=== PATIENT | female | born 1990 | race Caucasian/White ===

== ENCOUNTER 2019-05-05 09:45 | Outpatient (CLI) | payer MEDICAID, SELFPAY ==
[2019-05-05] VITALS (10 sets, daily range): BP systolic 0–120; BP diastolic 0–73; PULSE 72–97; RESP 18; TEMP 36.9; BMI 29.9
== END 2019-05-05 13:20 | disposition home or self-care (01) ==
PROVIDERS: PCP Nurse Practitioner Family; Visit Provider Family Medicine
DX: O26.899 Other specified pregnancy related conditions, unspecified trimester (principal); Z3A.00 Weeks of gestation of pregnancy not specified; R10.9 Unspecified abdominal pain
CPT/HCPCS: 99211

== ENCOUNTER 2019-05-06 03:56 | Inpatient (IN) | payer MEDICAID, SELFPAY ==
[2019-05-06] VITALS (13 sets, daily range): BP systolic 0–133; BP diastolic 0–84; PULSE 53–87; RESP 16–18; TEMP 36.7–36.9; O2SAT 97; BMI 29.9
[2019-05-06] MEDS: dextrose 5%-lactated ringers 1,000 ML 125 ML IV (04:36)
[2019-05-06 04:39] LABS: Basophils # 0.1 10^3/uL (0.0-0.1); Basophils % 0.4 %; Eosinophils # 0.3 10^3/uL (0.0-0.8); Eosinophils % 2.3 %; Hemoglobin 11.8 g/dL (11.5-15.3); Lymphocytes # 3.1 10^3/uL (0.8-4.8); Mean Corpuscular HGB Conc 33.7 g/dL (30.0-36.0); Mean Corpuscular Hemoglobin 31.2 pg (28.0-34.0); Mean Corpuscular Volume 92.6 fL (81-99); Mean Platelet Volume 10.3 fL (7.4-10.4); Monocytes # 0.6 10^3/uL (0.2-0.9); Monocytes % 4.8 %; Neutrophils # 7.9 10^3/uL (1.8-7.7); Neutrophils % 65.7 %; Nucleated Red Blood Cells % 0 %; Platelet Count 270 10^3/cmm (130-400); Red Blood Count 3.78 10^6/uL (4.1-5.3); Red Cell Distribution Width 12.1 % (12.1-15.1)
[2019-05-06] MEDS: oxytocin 30 UNIT/500 ML BAG 600 UNIT IV (04:50)
--- NOTE | 2019-05-06 06:00 | P.PCNOB_ITS ---
Delivery Note: Date of delivery: 05/06/19 Pre-delivery diagnoses: 37 week gestation G3, P2 female Post-delivery diagnoses: S/P Sponateous Vaginal Delivery. Procedure: Vaginal delivery. Anesthesia: none Delivering Physician: Alex Estimated blood loss (mL): 107 Pre-Delivery Course: This 28 year old G3 now P3 female [facility] care at [facility]. She transferred care to this physician at heraclio 24 weeks gestation. Maternal blood type was O+ with antibody screen negative. Hepatitis B and C were negative as were HIV and RPR. Rubella was immune. The patient spent heraclio 3 hrs at [facility] OB dept. yesterday with contractions but made no cervical change and was allowed to go home as she was 37 1/2 weeks gestation. Delivery: Patient arrived to [facility] OB department and was found to be completely dilated. This physician was called and arrived as quickly as possible. Upon his arrival the patient was placed in stirrups for delivery and was able to deliver by Spontaneous Vaginal delivery a 5 lb. 15 ounce female infant. After delivery of the head a nuchal cord X 1 was discovered and easily reduced prior to delivery of the anterior and posterior shoulders. The was suctioned then placed on mothers abdomen. After approximately one minute the cord was clamped and than cut by the infants father. The cord had 3 blood vessels. The infant delivered at 0440 and the placenta delivered spontaneously at 0445 and appeared to be intact. Infant APGARs were 8 and9 at one and five minutes respectively. There was a small periurethral laceration that did not require sutures. No anesthesia. Post-Delivery Status: No problems and minimal bleeding. A&P Assessment and plan (1) Spontaneous vaginal delivery: routine care. Adjust orders as needed. Status: Acute Code(s): O80 - Encounter for full-term uncomplicated delivery Coding Level of Care Code Acute Environmental Protection Inspector for Chg Fwd Diagnoses Spontaneous vaginal delivery O80
[2019-05-06] MEDS: prenatal vitamin Capsule 1 CAP PO (09:43)
[2019-05-06] MEDS: lanolin oint 7 gm 1 APPLIC TOPICAL (09:43)
[2019-05-06] MEDS: benzocaine-menthol 78 gm Canister 1 SPRAY TOPICAL (09:43)
[2019-05-06] MEDS: docusate sodium 100 mg Capsule PO ×2 (09:43→19:04)
[2019-05-06 17:13] LABS: Hematocrit 31.6 % (37.0-47.0); Hemoglobin 10.8 g/dL (11.5-15.3); Mean Corpuscular HGB Conc 34.2 g/dL (30.0-36.0); Mean Corpuscular Volume 93.5 fL (81-99); Mean Platelet Volume 10.3 fL (7.4-10.4); Platelet Count 234 10^3/cmm (130-400); Red Blood Count 3.38 10^6/uL (4.1-5.3); Red Cell Distribution Width 12.2 % (12.1-15.1); White Blood Count 12.4 10^3/uL (4.0-10.0)
[2019-05-07] MEDS: HYDROcodone-acetaminophen 5-325 mg Tablet PO (02:07)
[2019-05-07 04:00] VITALS: BP 93/56; PULSE 50; RESP 16; TEMP 36.6
[2019-05-07] MEDS: docusate sodium 100 mg Capsule PO (08:32)
[2019-05-07] MEDS: prenatal vitamin Capsule 1 CAP PO (08:32)
--- NOTE | 2019-05-07 08:38 | P.DS_ITS ---
Discharge Providers [facility] Date of Admission: 05/06/19 03:56 Date of Discharge: 05/07/19 Attending Provider at Admission: Roman Johnson MD Attending Provider at Discharge: Roman Johnson MD Primary Care Provider: Farhan Fatima Diagnoses at Discharge Discharge Diagnosis (1) Spontaneous vaginal delivery: Status: Acute Problem details: Patient delivered by spontaneous vaginal delivery early yesterday morning without problems. Reason for Visit Reason for Visit: Reason For Visit: CONTRACTIONS Hospital Course Hospital Course: After delivery, the patient has done extremely well. The is breast-feeding well. This patient is ambulating well and tolerating regular diet. She is doing well and is felt to be stable be discharged home. Discharge Summary: Exam is stable this morning. Fundus is firm. There are no complications or problems. Information Peripartum Data: Infant Delivery Method: Vaginal Physical Exam Const: COMMON NORMALS: oriented x3 HENMT: HEAD & SCALP: normal to inspection FACE & SINUS: normal facial exam Neck/C-Spine: COMMON NORMALS: no JVD Chest: COMMONS NORMALS: inspection of chest normal Resp: COMMON NORMALS: normal respiratory effort and clear to auscultation bilaterally AUSCULTATION: clear to auscultation bilaterally Cardio: COMMON NORMALS: no JVD, regular rate and regular rhythm RATE: regular rate RHYTHM: regular rhythm GI: COMMON NORMALS: normal to inspection, nondistended, normoactive bowel sounds : COMMON NORMALS: Yes no CVA tenderness (Fundus is firm.) BLADDER/KIDNEY EXAM: Yes no CVA tenderness (Fundus is firm.) Back/Pelvis: COMMON NORMALS: no CVA tenderness (Fundus is firm.) Extremity: GENERAL: Yes normal exam except as noted Neuro: COMMON NORMALS: oriented x3, no focal motor deficits and no sensory deficits noted Psych: COMMON NORMALS: mental status grossly normal Discharge Data Data Completed and Pending: Labs from last 24 hours 05/06/19 16:57 WBC 12.4 H RBC 3.38 L Hgb 10.8 L Hct 31.6 L MCV 93.5 MCH 32.0 MCHC 34.2 RDW 12.2 Plt Count 234 MPV 10.3 Vitals: Last Vital Signs Temp 97.9 F 05/07/19 04:00 Pulse 50 L 05/07/19 04:00 Resp 16 05/07/19 04:00 BP 93/56 05/07/19 04:00 Pulse Ox 97 05/06/19 21:30 Discharge Plan Discharge Patient Disposition: Home, Self-Care Condition: Stable Prescriptions: New ibuprofen 800 mg Tablet 800 mg PO TID Qty: 90 RF: 2 docusate sodium 100 mg Capsule 100 mg PO BID MDD 2/day Qty: 60 RF: 1 Lanolin (HPA) 100 % Cream 1 applic topical PRN PRN (Reason: Dryness) 30 Days Qty: 1 RF: 1 Continued PNV [id number]-ferrous fumarate-FA [] 28 mg iron- 800 mcg Tablet 1 tab PO DAILY RF: 0 Discharge Orders: Discharge Order (Routine); Ordered 05/07/19 Ordered By: Roman Johnson Referrals: Roman Johnson MD [Physician] - (Follow-up with Dr. Johnson in 6 weeks and as needed.) Discharge Diet: Usual diet Discharge Activity: Resume usual activity Discharge Attestations [facility] Time Spent in Discharge Care*: less than 30 min Coding Level of Care Code Acute Utility Worker Film Processing for Chg Fwd Diagnoses Spontaneous vaginal delivery O80
[2019-05-07 09:00] VITALS: BP 96/62; PULSE 62; RESP 16; TEMP 36.9; O2SAT 97
== END 2019-05-07 09:45 | disposition home or self-care (01) | DRG 807 ==
LOC: OPOB 04:12 → OBGYN 04:12 → OPOB 04:44
PROVIDERS: Admitting Provider Family Medicine; PCP Nurse Practitioner Family; Visit Provider Family Medicine
DX: O69.81X0 Labor and delivery complicated by cord around neck, without compression, not applicable or unspecified (principal); Z37.0 Single live birth; Z3A.37 37 weeks gestation of pregnancy
CPT/HCPCS: 59409; 85025; 85027; 99221

== ENCOUNTER 2019-07-13 05:54 | Day surgery (SDC) | payer MEDICAID, SELFPAY ==
[2019-07-12 13:05] VITALS: BMI 26.4
[2019-07-12 13:17] LABS: Basophils % 0.7 %; Eosinophils # 0.3 10^3/uL (0.0-0.8); Eosinophils % 4.9 %; Hematocrit 41.4 % (37.0-47.0); Hemoglobin 14.1 g/dL (11.5-15.3); Lymphocytes % 33.5 %; Mean Corpuscular HGB Conc 34.1 g/dL (30.0-36.0); Mean Corpuscular Hemoglobin 31.6 pg (28.0-34.0); Mean Corpuscular Volume 92.8 fL (81-99); Monocytes # 0.3 10^3/uL (0.2-0.9); Monocytes % 4.7 %; Neutrophils # 3.4 10^3/uL (1.8-7.7); Neutrophils % 56.2 %; Nucleated Red Blood Cells % 0 %; Platelet Count 248 10^3/cmm (130-400); Red Blood Count 4.46 10^6/uL (4.1-5.3)
[2019-07-12 13:23] LABS: OR HCG Qualitative Urine Negative (Negative)
--- NOTE | 2019-07-12 13:24 | P.ANESASSM_ITS ---
Pre-Anesthetic Assessment Pre-Anesthetic Assessment: Height/Weight: Height 1.6 m Weight 67.585 kg Preop Diagnosis: undessired fertility Proposed Procedure: Operation Date: 07/13/19 07:00 Proposed Procedures p Laparoscopic bilateral tubal ligation with salpingectomy 40463/Z30.2(Bilateral) - Roman Manuel DO s Salpingectomy(Bilateral) - Roman Manuel DO Social: Social History: Tobacco Packs per day: 1 Pack years: 10 Exam: Pre-Anes Outpt Exam: alert, oriented x 3, clear to auscultation bilaterally and regular rate & rhythm Airway: Submandibular: WNL Cervical ROM: WNL MP: 1 Dentition: Caps Additional comments: top front Anesthetic Plan: ASA status: 2 Anesthesia: General PFSH Anesthesia PFSH: Social History Smoking and tobacco status: current every day smoker cigarettes Packs smoked per day: 1 Alcohol intake: never Female Reproductive History: Date of last menstrual period: 05/06/19 Data Anesthesia CBC & Chem 7: 07/12/19 13:00 Other Labs: Laboratory Results - last 48 hr 07/12/19 07/12/19 12:58 13:00 WBC 6.0 RBC 4.46 Hgb 14.1 Hct 41.4 MCV 92.8 MCH 31.6 MCHC 34.1 RDW 12.0 L Plt Count 248 MPV 10.0 Neut % (Auto) 56.2 Lymph % (Auto) 33.5 Warrick % (Auto) 4.7 Eos % (Auto) 4.9 Baso % (Auto) 0.7 Neut # (Auto) 3.4 Lymph # (Auto) 2.0 Warrick # (Auto) 0.3 Eos # (Auto) 0.3 Baso # (Auto) 0.0 Nucleated RBC % (auto) 0 Nucleated RBCs # 0.0 Urine HCG, Qual Negative Cardiac Studies: No Data to Display
[2019-07-12 13:34] LABS: Anion Gap 12.9 (5-19); Blood Urea Nitrogen 8 mg/dL (6-20); Calcium 9.6 mg/dL (8.5-10.5); Carbon Dioxide 28 mmol/L (22-29); Chloride 104 mmol/L (98-107); Glomerular Filtration Rate 119.9 mL/min (90-130); Glucose 111 mg/dL (65-115); Osmolality Calculated 289 mOsm/kg (285-295); Potassium 3.9 mmol/L (3.5-5.1); Sodium 141 mmol/L (136-145)
[2019-07-13] VITALS (7 sets, daily range): BP systolic 101–116; BP diastolic 53–86; PULSE 62–98; RESP 18–26; TEMP 36.3–36.6; O2SAT 95–100
[2019-07-13] MEDS: gabapentin 300 mg Capsule PO (06:14)
[2019-07-13] MEDS: phenazopyridine 100 mg Tablet 200 MG PO (06:15)
[2019-07-13] MEDS: CELEcoxib 200 mg Capsule 400 MG PO (06:15)
[2019-07-13] MEDS: lactated ringers 1,000 ML 999 ML IV (06:22)
[2019-07-13] MEDS: scopolamine 1.5 Patch 1 PATCH TRANSDERMA (06:23)
--- NOTE | 2019-07-13 07:03 | W.PM.OPSUD ---
Surgery/Procedure H&P Update DATE OF PROCEDURE: July 13, 2019 DATE H&P PERFORMED: 07/10/19 PREOP DIAGNOSIS: undessired fertility PLANNED PROCEDURE: Operation Date: 07/13/19 07:00 Proposed Procedures p Laparoscopic bilateral tubal ligation with salpingectomy 19503/Z30.2(Bilateral) - DO maria ines Ramsey Salpingectomy(Bilateral) - Roman Manuel DO
--- NOTE | 2019-07-13 08:18 | P.OP_ITS ---
Operative Report Date of procedure: July 13, 2019 Pre-op Diagnosis: undesired fertility Post-op diagnosis: same Post-op Diagnosis: Endometriosis, superficial, right ovary Post-op Findings: Liver edge unremarkable Colmer gallbladder not seen appendix not seen. Normal-looking uterus tubes and ovaries except right ovary with small area of superficial endometriosis, cauterized cul-de-sac is without lesions or adhesions no lesions in the ovarian fossa. At the end of the case both tubes had been completely removed hemostasis was adequate Procedure Done: 1. Laparoscopic bilateral salpingectomy 2. Fulguration right ovarian endometriosis After informed consent patient was taken to the operating room [facility]. She had received preoperative antibiotics, and had reconfirmed her desire for permanent sterilization. In the operating room she was transferred to the operating table with sequential stockings in place. Underwent general tracheal anesthesia was placed in dorsolithotomy position for operative laparoscopy. Vagina perineum abdomen prepped and draped 3 minutes was waited prior to draping. Timeout was performed. Examination under anesthesia was performed uterus a small anterior mobile no cul-de-sac nodularity was noted no adnexal masses. Cruz catheter was placed open drainage uterine sound was placed in the uterus anterior lip of the uterus grasped with tenaculum these were clamped together to use uterine manipulator. This point time of the procedure of laparoscopic portion of the procedure the infraumbilical fold was infiltrated with 50-50 mixture of 0.5% Marcaine and 1% lidocaine. A 10 blade was used to make a small incision in the 5 mm trochars placed under optical guidance. Abdominal location was verified the abdomen was insufflated with CO2 inspection of the abdomen and pelvis were performed to the above findings. Patient was placed in Trendelenburg position and 5 mm trochars placed in the right lower quadrant approximate 4 fingerbreadths from the ASIS in line to the umbilicus and 8 mm trocar in the left quadrant 4 fingerbreadths from ASIS in line to the umbilicus. Both accessory trochars were placed under direct observation and after infiltrating with the Marcaine lidocaine solution for local. After inspection of the pelvis the left fallopian tube was grasped that is distal and and using unipolar cautery Adrienne the miso salpinx was cauterized and cut down the length of the tube the proximal end of the tube was cauterized cut and specimen withdrawn. Similar procedure was performed on the right. Both operative sites were inspected and were hemostatic. The right ovary was noted to have some bluish discoloration/spots in its inferior aspect this was felt to be endometriosis it was lightly cauterized with the unipolar Adrienne At this point time the abdomen was deflated to 8 mm and once again hemostasis was assured. At this point CO2 was allowed to leave the abdomen all in front and trochars removed under direct observation. The small skin incisions were closed with subcuticular 4-0 Vicryl and sealed with Dermabond. All instruments removed from the vagina Cruz catheter was removed there was no active bleeding. Patient was then taken from the operating room to the recovery room discharged home today. She will go home on Tylenol and ibuprofen with supplemental oxycodone as needed. I have discussed the case and findings with her he has been given further documentation. There were no complications Specimens removed/disposition: Bilateral fallopian tubes Pathology: other Pathology: Possible right ovarian endometriosis otherwise unremarkable findings fallopian tubes to pathology Surgeon: Roman Manuel Anesthesia: General Estimated blood loss (mL): 5 IV fluids (mL): 1,000 Urine output (mL): 200 Complications: None Findings: See above Condition: stable Disposition: same day
--- NOTE | 2019-07-13 08:45 | SUR.PHASEI ---
0834 pt alert 3 sites to abd D/I ABD SOFT, VSS PT ALERT ASKING FOR COFFEE TO DRINK HANDOFF AT OPS BEDSIDE.
== END 2019-07-13 09:35 | disposition home or self-care (01) ==
PROVIDERS: PCP Registered Nurse; Visit Provider Obstetrics & Gynecology Female Pelvic Medicine and Reconstructive Surgery
PROC: (CPT 58670; principal; 2019-07-13 07:00)
DX: Z30.2 Encounter for sterilization (principal); N80.1 Endometriosis of ovary; F17.210 Nicotine dependence, cigarettes, uncomplicated
CPT/HCPCS: 58662; 12345; 36415; 80048; 81025; 84703; 85025; 88302; 96365; J0131; J0690; J1100; J2001; J2250; J2405; J2704; J2710; J3010; J3490

== ENCOUNTER → 2020-04-22 11:14 | Outpatient (BNVA) | payer MEDICAID, SELFPAY | PROVIDERS: PCP Registered Nurse; Visit Provider Nurse Practitioner Family | DX: Z20.828 Contact with and (suspected) exposure to other viral communicable diseases (principal); R05 Cough | CPT/HCPCS: 87400; 87635 ==

== ENCOUNTER 2023-11-10 15:43 | Outpatient (RCR) | payer OTHER, SELFPAY | END 2023-11-24 23:59 | disposition home or self-care (01) | LOC: SOT 15:43 | PROVIDERS: PCP Registered Nurse; Visit Provider Plastic Surgery | DX: S62.600D Fracture of unspecified phalanx of right index finger, subsequent encounter for fracture with routine healing (principal); S64.492D Injury of digital nerve of right middle finger, subsequent encounter; X58.XXXD Exposure to other specified factors, subsequent encounter | CPT/HCPCS: 97022; 97110; 97140; 97166; 97530 ==

== ENCOUNTER 2023-11-25 06:00 | Outpatient (RCR) | payer OTHER, SELFPAY | END 2023-12-25 23:59 | disposition home or self-care (01) | LOC: SOT 06:00 | PROVIDERS: PCP Registered Nurse; Visit Provider Plastic Surgery | DX: S62.630B Displaced fracture of distal phalanx of right index finger, initial encounter for open fracture (principal); S64.492A Injury of digital nerve of right middle finger, initial encounter; X58.XXXA Exposure to other specified factors, initial encounter | CPT/HCPCS: 97022; 97110; 97140 ==

== ENCOUNTER 2023-12-26 06:00 | Outpatient (RCR) | payer OTHER, SELFPAY | END 2024-01-24 23:59 | disposition home or self-care (01) | LOC: SOT 06:00 | PROVIDERS: PCP Registered Nurse; Visit Provider Plastic Surgery | DX: S62.600D Fracture of unspecified phalanx of right index finger, subsequent encounter for fracture with routine healing (principal); S64.492D Injury of digital nerve of right middle finger, subsequent encounter; X58.XXXD Exposure to other specified factors, subsequent encounter | CPT/HCPCS: 97022; 97110; 97140 ==

== ENCOUNTER → 2024-07-07 10:29 | Outpatient (BNVA) | payer MEDICAID, SELFPAY | PROVIDERS: PCP Registered Nurse; Visit Provider Registered Nurse | DX: Z01.419 Encounter for gynecological examination (general) (routine) without abnormal findings (principal); N64.52 Nipple discharge | CPT/HCPCS: 84146; 85025; 87070; 87205; 87624 ==

== ENCOUNTER 2024-08-21 14:12 | Outpatient (CLI) | payer MEDICAID, SELFPAY ==
--- NOTE | 2024-08-21 14:25 | US_ITS ---
WS: [id number] BILATERAL 3D TOMOSYNTHESIS DIGITAL DIAGNOSTIC MAMMOGRAPHY WITH CAD CLINICAL INFORMATION: N64.52 - Nipple discharge HISTORY: Green discharge LEFT breast. Soreness LEFT breast. COMPARISON: None. TECHNIQUE: Bilateral CC, MLO, and ML views. FINDINGS: Scattered fibroglandular densities bilaterally. No visualized retroareolar lesions. Ovoid 9 mm asymmetric density upper inner LEFT breast posteriorly. Ultrasound is pending. Unremarkable RIGHT breast. ULTRASOUND BREAST LEFT TECHNIQUE: Ultrasound left breast focused area of concern. CLINICAL INFORMATION: N64.52 - Nipple discharge FINDINGS: Ultrasound retroareolar LEFT breast. No suspicious cystic or solid lesions in this location. Incidental ductal ectasia. Incidental tiny cyst in the 3 o'clock position measuring 3 x 4 mm 3 cm from the nipple. Incidental lymph node upper inner quadrant measuring 6 x 4 mm 4 cm from the nipple at the 9 o'clock position. Additional cyst at the 12 o'clock position 4 cm from the nipple upper inner quadrant measuring 6 x 6 mm.Incidental lymph node at the 10 o'clock position 3 cm from the nipple. US/US breast LT limited* [id number] IMPRESSION: DENSITY: There are scattered areas of fibroglandular density. BI-RADS: 2 - Benign. FOLLOW UP: Age 42 Recommend annual screening mammography age 40.
--- NOTE | 2024-08-21 14:30 | MM_ITS ---
WS: [id number] BILATERAL 3D TOMOSYNTHESIS DIGITAL DIAGNOSTIC MAMMOGRAPHY WITH CAD CLINICAL INFORMATION: N64.52 - Nipple discharge HISTORY: Green discharge LEFT breast. Soreness LEFT breast. COMPARISON: None. TECHNIQUE: Bilateral CC, MLO, and ML views. FINDINGS: Scattered fibroglandular densities bilaterally. No visualized retroareolar lesions. Ovoid 9 mm asymmetric density upper inner LEFT breast posteriorly. Ultrasound is pending. Unremarkable RIGHT breast. ULTRASOUND BREAST LEFT TECHNIQUE: Ultrasound left breast focused area of concern. CLINICAL INFORMATION: N64.52 - Nipple discharge FINDINGS: Ultrasound retroareolar LEFT breast. No suspicious cystic or solid lesions in this location. Incidental ductal ectasia. Incidental tiny cyst in the 3 o'clock position measuring 3 x 4 mm 3 cm from the nipple. Incidental lymph node upper inner quadrant measuring 6 x 4 mm 4 cm from the nipple at the 9 o'clock position. Additional cyst at the 12 o'clock position 4 cm from the nipple upper inner quadrant measuring 6 x 6 mm.Incidental lymph node at the 10 o'clock position 3 cm from the nipple. MM/MM diag tomosynthesis [id number] IMPRESSION: DENSITY: There are scattered areas of fibroglandular density. BI-RADS: 2 - Benign. FOLLOW UP: Age 42 Recommend annual screening mammography age 42.
== END 2024-08-21 14:13 | disposition home or self-care (01) ==
LOC: RAD 14:19
PROVIDERS: PCP Registered Nurse; Visit Provider Registered Nurse
DX: N64.52 Nipple discharge (principal); R92.323 Mammographic fibroglandular density, bilateral breasts; N63.22 Unspecified lump in the left breast, upper inner quadrant; N60.42 Mammary duct ectasia of left breast; N60.12 Diffuse cystic mastopathy of left breast; R59.0 Localized enlarged lymph nodes
CPT/HCPCS: 76642; 77062; G0279

== ENCOUNTER → 2024-09-01 08:26 | Outpatient (BNVA) | payer MEDICAID, SELFPAY | PROVIDERS: PCP Registered Nurse; Visit Provider Orthopaedic Surgery | DX: M79.644 Pain in right finger(s) (principal); Z96.9 Presence of functional implant, unspecified | CPT/HCPCS: 73130 ==

== ENCOUNTER 2024-09-22 11:16 | Day surgery (SDC) | payer MEDICAID, SELFPAY ==
[2024-09-22] VITALS (7 sets, daily range): BP systolic 102–148; BP diastolic 58–69; PULSE 50–80; RESP 16–18; TEMP 36.1–36.8; O2SAT 98–100
[2024-09-22] MEDS: sodium chloride 0.9% 1,000 ML 30 ML IV (11:49)
[2024-09-22 11:56] LABS: OR HCG Qualitative Urine Negative (Negative)
--- NOTE | 2024-09-22 12:57 | W.PM.OPSUD ---
Surgery/Procedure H&P Update DATE OF PROCEDURE: September 22, 2024 DATE H&P PERFORMED: 09/01/24 H&P UPDATE INFORMATION: I have reviewed H&P completed within last 30 days, I have examined patient prior to procedure and No changes to prior documentation PREOP DIAGNOSIS: retained hardware right index finger PLANNED PROCEDURE: Operation Date: 09/22/24 12:50 Proposed Procedures p right index pin extraction(Right) - Wan Laureano MD
[2024-09-22] MEDS: ceFAZolin 2,000 mg SDV 2000 MG IVP (13:12)
[2024-09-22] MEDS: BUPivacaine 0.5% INJ 10 mL INJECTION (13:26)
--- NOTE | 2024-09-22 13:32 | P.OP_ITS ---
Operative Report Date of procedure: September 22, 2024 Surgeon: Wan Laureano MD Procedure: Preoperative diagnosis: Retained hardware right index finger Postoperative diagnosis: Same Procedure: Excision of retained hardware right index finger, small pin Surgeon: Wan Laureano MD Anesthesia: Local anesthetic EBL: None Specimen: Small K wire Indications: Manjinder is a 34-year-old white female who was seen in the orthopedic clinics for retained pin within her right index finger. Quite sometime ago she had 2 pins placed in there to reduce the fracture. Previous surgeon remove one of the pins and left the other [address]. However this 1 has now migrated to the surface on several occasions and now needs to have his pin removed because it is painful in and possibly leading to infection in the area. After clinical evaluation, the pin was not visible above the skin. Therefore at this time surgical intervention was good be necessary. Therefore at this time I have discussed with her all risk benefits treatment alternatives. I have indicated I have not able to do it in the clinic as we do not have the equipment to do that left there. She does understand this and therefore went ahead and scheduled this for regular overtime. Procedure: After obtaining her consent patient was taken the operating room on her [facility] and hand table was placed on this. Right hand was prepped and draped in usual fashion. After surgical timeout I anesthetized the finger with half percent Marcaine plain with a digital block of the index finger. Once good anesthesia was achieved a small incision was made over the entry point of the pin with a #15 blade. Gentle dissection with the tips of a small hemostat identified the pin the pin was able to be removed without any difficulty. There is no sign of any infection, there is no purulent material, there is no drainage at all. Send cleaned and dried then dressed with Xeroform gauze and a sterile Curlex wrap around it. Tape was used to hold this in place. Patient was then transported back to the preoperative area in stable condition.
== END 2024-09-22 13:56 | disposition home or self-care (01) ==
PROVIDERS: Student in an Organized Health Care Education/Training Program; PCP Registered Nurse; Visit Provider Orthopaedic Surgery
PROC: (CPT 20680; principal; 2024-09-22 12:40)
DX: Z47.2 Encounter for removal of internal fixation device (principal); T84.84XA Pain due to internal orthopedic prosthetic devices, implants and grafts, initial encounter; F17.290 Nicotine dependence, other tobacco product, uncomplicated
CPT/HCPCS: 20680; 81025; J0690; J2250; J2704; J3010; J3490; J7030